=== PATIENT | female | born 1970 | race Caucasian/White ===

== ENCOUNTER 2016-07-11 21:21 | Emergency (ER) | payer OTHER ==
[2016-07-11 21:26] VITALS: TEMP 98.2; O2SAT 98
--- NOTE | 2016-07-11 22:22 | EDPHY ---
H & P Time Seen by Provider: 07/11/16 21:53 HPI/ROS: CHIEF COMPLAINT: Left ankle injury HISTORY OF PRESENT ILLNESS: The patient is a 46-year-old female who presents emergency department after injuring her left ankle while hiking. Patient states she misstepped and felt a pop on her lateral ankle. She now has significant pain. Pain extends throughout oral ankle but is primarily focused on the lateral aspect. She has mild radiation upper lower leg. She did not sustain any other injury on her fall. She denies numbness or tingling. REVIEW OF SYSTEMS: My complete review of systems is negative except as mentioned in the HPI. Past Medical/Surgical History: Includes acne, breast cancer, panic attack Social history: The patient does not smoke Smoking Status: Never smoked Physical Exam: Vitals noted General Appearance: Alert and no distress. Head: Pupils equal. Normal. Respiratory: No respiratory distress. Cardiac: regular rate and rhythm. Extremities: patient has noted swelling over her left lateral malleolus. There is tenderness to palpation over the lateral malleolus as well as medial malleolus. Patient has mild tenderness palpation over proximal fibula. Rest review lower extremities atraumatic. She is neurovascular intact distally. Skin: No rashes or lesions. Neuro: Alert. Normal mood and affect. Constitutional: Initial Vital Signs Temperature (C) 36.8 C 07/11/16 21:23 Heart Rate 78 07/11/16 21:23 Respiratory Rate 18 07/11/16 21:23 Blood Pressure 117/89 H 07/11/16 21:23 O2 Sat (%) 98 07/11/16 21:23 O2 Delivery Mode Room Air Allergies/Adverse Reactions: shellfish Allergy (Uncoded 07/11/16 21:26) Home Medications: Medication Instructions Recorded Doxycycline Hyclate 100 mg PO 07/11/16 Hydrocodone/APAP 5/325 [[place] 1 - 2 tab PO Q4 #9 tab 07/11/16 5/325 (RX)] Medical Decision Making ED Course/Re-evaluation: In the emergency department I discussed possible etiologies with the patient. The patient had an x-ray of her left ankle as well as her left tib-fib. Left ankle x-ray: Please refer the dictated report. Patient has a distal fibular fracture. This is nondisplaced. Please refer the dictated report. Left tib-fib: As above. No proximal injury. I discussed the results with the patient. She was placed in a Hyman boot. She was given crutches. She will follow up with Dr. Sloan. She is given warnings prior to leaving. She will return with worsening symptoms. Differential Diagnosis: My differential includes but is not limited to fracture, dislocation, contusion , sprain Departure - Departure Disposition: Home, Routine, Self-Care Clinical Impression: Closed fibular fracture Qualifiers: Encounter type: initial encounter Fibula location: distal Fracture morphology: other fracture Laterality: left Qualified Code(s): S82.832A - Other fracture of upper and lower end of left fibula, initial encounter for closed fracture Condition: Good Instructions: Ankle Fracture (ED) Additional Instructions: You broke your distal fibula. Keep your brace in place. You should be nonweightbearing until you follow up with Orthopedics. Keep your leg elevated for the next 48 hours. Use ice for the next 48 hours. You been given Vicodin for pain control. Continue to take ibuprofen every 6 hours. Referrals: Mami Armstrong MD [Primary Care Provider] - As per Instructions Isael Sloan MD [Medical Doctor] - 5-7 days, call for appt. Prescriptions: Hydrocodone/APAP 5/325 [[place] 5/325 (RX)] 1 - 2 tab PO Q4 #9 tab
[2016-07-11] MEDS ORDERED: HYDROCOD/APAP 5/325 PREPACK#6 BTL TAKEHOME ONE (22:31)
[2016-07-11 23:41] VITALS: BP 112/82; PULSE 75; RESP 16
== END 2016-07-11 23:30 | disposition home or self-care (01) ==
DX: S82.65XA Nondisplaced fracture of lateral malleolus of left fibula, initial encounter for closed fracture (principal); Z85.3 Personal history of malignant neoplasm of breast; X58.XXXA Exposure to other specified factors, initial encounter; Y99.8 Other external cause status; Y93.01 Activity, walking, marching and hiking
CPT/HCPCS: L4386

== ENCOUNTER → 2016-07-17 | Outpatient (CLI) | payer OTHER | LOC: BMCIMAGING 16:37 | PROVIDERS: ATTEND Podiatrist Foot & Ankle Surgery | DX: S82.65XA Nondisplaced fracture of lateral malleolus of left fibula, initial encounter for closed fracture (principal); W19.XXXA Unspecified fall, initial encounter ==

== ENCOUNTER → 2016-07-27 | Outpatient (CLI) | payer OTHER | LOC: BMCIMAGING 13:59 | PROVIDERS: ATTEND Podiatrist Foot & Ankle Surgery | DX: S82.832D Other fracture of upper and lower end of left fibula, subsequent encounter for closed fracture with routine healing (principal); I82.402 Acute embolism and thrombosis of unspecified deep veins of left lower extremity ==

== ENCOUNTER 2016-08-09 12:55 | Emergency (ER) | payer OTHER ==
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
[2016-08-09 14:55] VITALS: BP 121/91; PULSE 76; RESP 16; TEMP 98.6; O2SAT 93
== END 2016-08-09 14:56 | disposition home or self-care (01) ==
DX: S16.1XXA Strain of muscle, fascia and tendon at neck level, initial encounter (principal); V89.2XXA Person injured in unspecified motor-vehicle accident, traffic, initial encounter; M25.572 Pain in left ankle and joints of left foot

== ENCOUNTER → 2016-08-27 | Outpatient (CLI) | payer OTHER | LOC: BMCIMAGING 12:51 | PROVIDERS: ATTEND Podiatrist Foot & Ankle Surgery | DX: Z09 Encounter for follow-up examination after completed treatment for conditions other than malignant neoplasm (principal); S82.832A Other fracture of upper and lower end of left fibula, initial encounter for closed fracture ==

== ENCOUNTER → 2016-09-01 | Outpatient (CLI) | payer OTHER | LOC: FIMAGING 15:38 | PROVIDERS: ATTEND Internal Medicine Hematology & Oncology | DX: Z12.31 Encounter for screening mammogram for malignant neoplasm of breast (principal); Z85.3 Personal history of malignant neoplasm of breast; R91.8 Other nonspecific abnormal finding of lung field | CPT/HCPCS: G0202 ==

== ENCOUNTER → 2016-09-11 | Outpatient (CLI) | payer OTHER | LOC: FIMAGING 08:50 | PROVIDERS: ATTEND Internal Medicine Hematology & Oncology | DX: N60.02 Solitary cyst of left breast (principal); N64.4 Mastodynia; Z85.3 Personal history of malignant neoplasm of breast ==

== ENCOUNTER → 2016-10-15 | Outpatient (CLI) | payer OTHER | LOC: BMCIMAGING 08:48 | PROVIDERS: ATTEND Podiatrist Foot & Ankle Surgery | DX: S82.832D Other fracture of upper and lower end of left fibula, subsequent encounter for closed fracture with routine healing (principal) ==

== ENCOUNTER → 2016-11-10 | Outpatient (CLI) | payer OTHER | LOC: BMCIMAGING 16:12 | PROVIDERS: ATTEND Family Medicine | DX: D25.1 Intramural leiomyoma of uterus (principal) ==

== ENCOUNTER → 2016-11-12 | Outpatient (CLI) | payer OTHER | LOC: BMCIMAGING 10:55 | PROVIDERS: ATTEND Podiatrist Foot & Ankle Surgery | DX: S82.832D Other fracture of upper and lower end of left fibula, subsequent encounter for closed fracture with routine healing (principal) ==

== ENCOUNTER → 2016-11-17 | Outpatient (CLI) | payer OTHER | LOC: BMCIMAGING 12:46 | PROVIDERS: ATTEND Family Medicine | DX: Z09 Encounter for follow-up examination after completed treatment for conditions other than malignant neoplasm (principal); Z86.718 Personal history of other venous thrombosis and embolism ==

== ENCOUNTER 2016-12-03 15:14 | Emergency (ER) | payer OTHER ==
[2016-12-03 15:39] VITALS: TEMP 98.1
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
[2016-12-03] MEDS ORDERED: fentaNYL 100 MCG/2 ML INJ IVP ONE (16:34)
[2016-12-03] MEDS ORDERED: ONDANSETRON 4 MG/2 ML VIAL IVP ONE (16:34)
[2016-12-03 16:41] LABS: % IMMATURE GRANULYOCYTES 0.4 % (0.0-1.1); ABSOLUTE IMMATURE GRANULOCYTES 0.02 10^3/uL (0.00-0.10); ADD DIFF? NO; ADD MORPH? NO; ADD SCAN? NO; ATYPICAL LYMPHOCYTE FLAG 0 (0-99); FRAGMENT RBC FLAG 0 (0-99); HEMOGLOBIN 13.9 g/dL (12.6-16.3); LEFT SHIFT FLG 0 (0-99); LIPEMIA HEMOLYSIS FLAG 80 (0-99); MEAN CELL HEMOGLOBIN 31.3 pg (27.9-34.1); MEAN CELL HEMOGLOBIN CONCENTR. 33.1 g/dL (32.4-36.7); MEAN CELL VOLUME 94.6 fL (81.5-99.8); MEAN PLATELET VOLUME 10.9 fL (8.7-11.7); PLATELET CLUMPS FLAG 20 (0-99); PLATELET COUNT 198 10^3/uL (150-400); RED BLOOD CELL COUNT 4.44 10^6/uL (4.18-5.33)
[2016-12-03 16:47] LABS: ANION GAP 13 mEq/L (8-16); CALCIUM 9.7 mg/dL (8.5-10.4); CARBON DIOXIDE 24 mEq/l (22-31); CHLORIDE 104 mEq/L (97-110); GLOMERULAR FILTRATION RATE 59; GLUCOSE 92 mg/dL (70-100); POTASSIUM 4.1 mEq/L (3.5-5.2); SODIUM 141 mEq/L (134-144)
[2016-12-03] MEDS ORDERED: HYDROCODONE/APAP 5/325 TAB PO ONE ×2 (17:02→18:27)
[2016-12-03] MEDS ORDERED: ACETAMINOPHEN 500 MG TAB ONE (17:05)
[2016-12-03] MEDS ORDERED: ACETAMINOPHEN 325 MG TAB ONE (17:06)
[2016-12-03 17:07] LABS: COLOR PALE YELLOW; LEUKOCYTE ESTERASE,URINE NEGATIVE (NEGATIVE); NITRITE,URINE NEGATIVE (NEGATIVE)
[2016-12-03 18:02] VITALS: RESP 16
[2016-12-03 18:27] VITALS: O2SAT 97
[2016-12-03] MEDS ORDERED: LIDOCAINE 5% 1 EA PATCH TD ONE ×2 (19:15→19:49)
[2016-12-03 20:02] VITALS: BP 121/65; PULSE 86
[2016-12-03] MEDS ORDERED: PATCH REMOVAL 1 EA PATCH TD SCH (21:00)
== END 2016-12-03 20:02 | disposition home or self-care (01) ==
DX: S39.012A Strain of muscle, fascia and tendon of lower back, initial encounter (principal); Z85.3 Personal history of malignant neoplasm of breast; X58.XXXA Exposure to other specified factors, initial encounter
CPT/HCPCS: 96374; J2405

== ENCOUNTER → 2016-12-24 | Outpatient (CLI) | payer OTHER | LOC: BMCIMAGING 15:37 | PROVIDERS: ATTEND Podiatrist Foot & Ankle Surgery | DX: S82.832D Other fracture of upper and lower end of left fibula, subsequent encounter for closed fracture with routine healing (principal) ==

== ENCOUNTER → 2017-03-25 | Outpatient (CLI) | payer OTHER | LOC: BMCIMAGING 08:25 | PROVIDERS: ATTEND Orthopaedic Surgery Hand Surgery | DX: Z47.89 Encounter for other orthopedic aftercare (principal); S82.832D Other fracture of upper and lower end of left fibula, subsequent encounter for closed fracture with routine healing ==

== ENCOUNTER → 2017-04-07 | Outpatient (CLI) | payer OTHER | LOC: FIMAGING 09:45 | PROVIDERS: ATTEND Internal Medicine Hematology & Oncology | DX: N64.4 Mastodynia (principal); N63.20 Unspecified lump in the left breast, unspecified quadrant; Z85.3 Personal history of malignant neoplasm of breast ==